=== PATIENT | female | born 1985 | race Caucasian/White ===

== ENCOUNTER 2019-07-29 15:58 | Emergency (ER) | payer OTHER ==
[2019-07-29] MEDS: KETOROLAC 15 MG INJ IV (17:29)
[2019-07-29] MEDS: SOD CHLORIDE 0.9% 1,000 ML IV (17:29)
[2019-07-29] MEDS: CEPHALEXIN 500 MG CAP PO (18:03)
== END 2019-07-29 19:30 | disposition home or self-care (01) ==
LOC: FTE 15:58
DX: N39.0 Urinary tract infection, site not specified (principal); E05.90 Thyrotoxicosis, unspecified without thyrotoxic crisis or storm; R00.0 Tachycardia, unspecified
CPT/HCPCS: 36415; 80053; 81001; 81025; 83690; 84439; 84443; 84481; 84484; 85025; 86308; 87880; 93005; 96374; 99285-25